=== PATIENT | male | born 1980 | race African-American/Black ===

== ENCOUNTER 2020-10-01 17:52 | Inpatient (IN) ==
[2020-10-01 23:55] LABS: Basophils % 0.3 % (0.0-0.8); Eosinophils # 0.1 10*3/uL (0.0-0.87); Eosinophils % 1.9 % (0.00-10.9); Hematocrit 30.3 VOL% (42.0-52.0); Hemoglobin 9.4 GM/DL (14.0-18.0); Immature Granulocytes % 0.4 %; Immature Granulocytes Absolute 0.03 #; Lymphocytes # 1.6 10*3/uL (1.4-4.0); Lymphocytes % 22.4 % (21.2-54.2); Mean Corpuscular Volume 77.3 FL (87-102); Mean Platelet Volume 9.9 FL (9.6-12.0); Monocytes % 14.6 % (1.7-12.7); Neutrophils % 60.4 % (38.7-73.9); Platelet Count 281 T/CUMM (130-400); Red Blood Count 3.92 MC/CUMM (3.8-5.5); Red Cell Distribution Width 15.9 % (9.3-17.3); White Blood Count 7.2 T/CUMM (4-12)
[2020-10-02] MEDS ORDERED: ONDANSETRON 4 MG/2 ML VIAL ONE (00:01)
[2020-10-02] MEDS ORDERED: ONDANSETRON 4 MG/2 ML VIAL IV STA (00:04)
[2020-10-02 00:25] LABS: Alanine Aminotransferase 17 U/L (16-61); Albumin 2.4 G/DL (3.4-5.0); Alkaline Phosphatase 112 U/L (45-117); Aspartate Amino Transferase 13 U/L (0-37); Bilirubin,Total < 0.39 MG/DL (0.20-1.00); Blood Urea Nitrogen 19 MG/DL (7-18); Calcium 8.8 MG/DL (8.5-10.1); Carbon Dioxide 32 MMOL/L (21-32); Estimated Glom Filtration Rate 63 ML/MIN; Glucose 141 MG/DL (74-106); Osmolality,Calculated 282.4 MOS/KG (273-304); Potassium 3.9 MMOL/L (3.5-5.1); Sodium 140 MMOL/L (136-145); Total Protein 7.5 G/DL (6.4-8.2)
[2020-10-02] MEDS ORDERED: PIPERACILLIN/TAZOBACTAM 3,375 MG in SODIUM CHLORIDE 0.9% 100 ML IV STA (00:37)
[2020-10-02] MEDS ORDERED: SODIUM CHLORIDE 0.9% 1,000 ML IV STA (00:37)
[2020-10-02 01:15] LABS: Bacteria,Urine Occasional /HPF (Few); Bilirubin,Urine Negative (Negative); Blood, Urine Moderate mg/dL (Negative); Glucose,Urine (UA) Negative (Negative); Hyaline Casts,Urine 7 /LPF (0-3); Ketones,Urine Negative (Negative); Mucus,Urine Occasional /LPF (Occasional); Nitrite,Urine Negative (Negative); Protein,Urine 100 MG/DL; RBC,Urine 13 /HPF (0-4); Urine Appearance CLEAR (Clear); Urine Color Yellow (Yellow); Urine Specific Gravity 1.014 (1.001-1.035); Urine Urobilinogen < 2.0 EU/DL (0.2-1.0)
[2020-10-02] MEDS ORDERED: GLUCAGON 1 MG VIAL IM PRN ×2 (01:57→15:41)
[2020-10-02] MEDS ORDERED: DEXTROSE 50% 25 GM/50 ML VIAL IV PRN ×2 (01:57→15:41)
[2020-10-02] MEDS ORDERED: NICOTINE 21 MG/24 HR PATCH TRANSDERM PRN (01:57)
[2020-10-02] MEDS ORDERED: hydrALAZINE 20 MG/1 ML VIAL IV PRN (01:57)
[2020-10-02] MEDS ORDERED: ACETAMINOPHEN 325 MG TABLET PO PRN (01:57)
[2020-10-02] MEDS ORDERED: VANCOMYCIN 1,000 MG VIAL ONE (03:55)
[2020-10-02] MEDS ORDERED: VANCOMYCIN INJ 1,000 MG in SODIUM CHLORIDE 0.9% 250 ML IV STA (03:56)
[2020-10-02] MEDS: ONDANSETRON 4 MG/2 ML VIAL IV PRN ×4 (04:43→20:54)
[2020-10-02] MEDS ORDERED: VANCOMYCIN INJ 1,000 MG in SODIUM CHLORIDE 0.9% 250 ML IV ONE (05:00)
[2020-10-02] MEDS: INSULIN REGULAR 100 UNIT/ML SUBCUT SCH ×3 (06:08→17:20)
[2020-10-02 08:44] LABS: Basophils % 0.4 % (0.0-0.8); Eosinophils # 0.1 10*3/uL (0.0-0.87); Eosinophils % 0.8 % (0.00-10.9); Hematocrit 30.2 VOL% (42.0-52.0); Hemoglobin 9.3 GM/DL (14.0-18.0); Immature Granulocytes % 0.4 %; Immature Granulocytes Absolute 0.03 #; Lymphocytes # 1.2 10*3/uL (1.4-4.0); Mean Corpuscular HGB Conc 30.8 GM/DL (32-36); Mean Corpuscular Volume 77.4 FL (87-102); Mean Platelet Volume 9.5 FL (9.6-12.0); Monocytes % 9.8 % (1.7-12.7); Neutrophils % 71.6 % (38.7-73.9); Platelet Count 262 T/CUMM (130-400); Red Cell Distribution Width 15.8 % (9.3-17.3); White Blood Count 7.3 T/CUMM (4-12)
[2020-10-02] MEDS ORDERED: SODIUM CHLORIDE 0.45% 1,000 ML IV SCH (09:00)
[2020-10-02 09:06] LABS: Calcium 8.5 MG/DL (8.5-10.1); Osmolality,Calculated 287.1 MOS/KG (273-304); Potassium 3.9 MMOL/L (3.5-5.1)
[2020-10-02] MEDS: carvediloL 6.25 MG TABLET PO SCH ×2 (10:12→22:40)
[2020-10-02] MEDS: PIPERACILLIN/TAZOBACTAM 3,375 MG in SODIUM CHLORIDE 0.9% 100 ML IV SCH ×2 (10:14→15:34)
[2020-10-02] MEDS: MORPHINE 2 MG/1 ML SYRINGE IV PRN (23:30)
[2020-10-03] MEDS: PIPERACILLIN/TAZOBACTAM 3,375 MG in SODIUM CHLORIDE 0.9% 100 ML IV SCH ×3 (00:46→16:34)
[2020-10-03] MEDS: INSULIN REGULAR 100 UNIT/ML SUBCUT SCH ×4 (00:53→17:42)
[2020-10-03] MEDS: MORPHINE 2 MG/1 ML SYRINGE IV PRN (03:50)
[2020-10-03] MEDS: ONDANSETRON 4 MG/2 ML VIAL IV PRN (05:02)
[2020-10-03] MEDS: VANCOMYCIN INJ 1,750 MG in SODIUM CHLORIDE 0.9% 500 ML IV SCH (05:05)
[2020-10-03 05:36] LABS: Basophils % 0.4 % (0.0-0.8); Eosinophils # 0.2 10*3/uL (0.0-0.87); Eosinophils % 2.3 % (0.00-10.9); Hematocrit 28.4 VOL% (42.0-52.0); Immature Granulocytes % 0.5 %; Immature Granulocytes Absolute 0.04 #; Lymphocytes # 1.4 10*3/uL (1.4-4.0); Lymphocytes % 19.1 % (21.2-54.2); Mean Corpuscular HGB Conc 31.7 GM/DL (32-36); Mean Corpuscular Volume 76.5 FL (87-102); Mean Platelet Volume 9.8 FL (9.6-12.0); Monocytes % 10.7 % (1.7-12.7); Platelet Count 256 T/CUMM (130-400); Red Blood Count 3.71 MC/CUMM (3.8-5.5); Red Cell Distribution Width 15.6 % (9.3-17.3); White Blood Count 7.4 T/CUMM (4-12)
[2020-10-03 05:56] LABS: Calcium 8.4 MG/DL (8.5-10.1); Potassium 3.8 MMOL/L (3.5-5.1)
[2020-10-03 05:58] LABS: Risk Ratio 6.03; VLDL Cholesterol 34.2 MG/DL
[2020-10-03] MEDS: carvediloL 6.25 MG TABLET PO SCH ×2 (09:56→21:23)
[2020-10-03] MEDS ORDERED: LACTULOSE 20 GM/30 ML UDCUP PO PRN (11:16)
[2020-10-03] MEDS: INSULIN ASPART PROTAMINE/ASPART 70/30 100 UNIT/ML SUBCUT SCH (16:34)
[2020-10-03] MEDS: ATORVASTATIN 20 MG TABLET PO SCH (21:23)
[2020-10-03] MEDS: INSULIN GLARGINE 100 UNIT/ML SUBCUT SCH (21:25)
[2020-10-04] MEDS: INSULIN REGULAR 100 UNIT/ML SUBCUT SCH ×4 (00:02→17:07)
[2020-10-04] MEDS: PIPERACILLIN/TAZOBACTAM 3,375 MG in SODIUM CHLORIDE 0.9% 100 ML IV SCH ×2 (00:02→09:43)
[2020-10-04] MEDS: VANCOMYCIN INJ 1,750 MG in SODIUM CHLORIDE 0.9% 500 ML IV SCH (05:13)
[2020-10-04 07:19] LABS: Basophils % 0.4 % (0.0-0.8); Eosinophils # 0.3 10*3/uL (0.0-0.87); Eosinophils % 3.6 % (0.00-10.9); Hematocrit 27.7 VOL% (42.0-52.0); Hemoglobin 8.5 GM/DL (14.0-18.0); Immature Granulocytes % 0.4 %; Immature Granulocytes Absolute 0.03 #; Lymphocytes # 1.6 10*3/uL (1.4-4.0); Lymphocytes % 21.2 % (21.2-54.2); Mean Corpuscular HGB Conc 30.7 GM/DL (32-36); Mean Corpuscular Volume 77.8 FL (87-102); Mean Platelet Volume 9.9 FL (9.6-12.0); Monocytes % 8.3 % (1.7-12.7); Neutrophils % 66.1 % (38.7-73.9); Platelet Count 264 T/CUMM (130-400); Red Blood Count 3.56 MC/CUMM (3.8-5.5); Red Cell Distribution Width 15.5 % (9.3-17.3); White Blood Count 7.6 T/CUMM (4-12)
[2020-10-04] MEDS: INSULIN ASPART PROTAMINE/ASPART 70/30 100 UNIT/ML SUBCUT SCH ×2 (07:38→16:36)
[2020-10-04 07:52] LABS: Calcium 8.5 MG/DL (8.5-10.1); Osmolality,Calculated 284.1 MOS/KG (273-304); Potassium 3.5 MMOL/L (3.5-5.1)
[2020-10-04] MEDS: ASPIRIN CHEW 81 MG TABLET PO SCH (09:00)
[2020-10-04] MEDS: carvediloL 6.25 MG TABLET PO SCH ×2 (09:01→22:08)
[2020-10-04] MEDS: cefTRIAXone 1,000 MG in SODIUM CHLORIDE 0.9% 100 ML IV SCH (13:46)
[2020-10-04] MEDS: ATORVASTATIN 20 MG TABLET PO SCH (22:08)
[2020-10-05] MEDS: INSULIN REGULAR 100 UNIT/ML SUBCUT SCH ×4 (03:38→17:05)
[2020-10-05] MEDS: INSULIN GLARGINE 100 UNIT/ML SUBCUT SCH ×2 (03:38→21:56)
[2020-10-05] MEDS: carvediloL 6.25 MG TABLET PO SCH ×3 (06:36→21:56)
[2020-10-05 07:06] LABS: Basophils % 0.4 % (0.0-0.8); Eosinophils # 0.3 10*3/uL (0.0-0.87); Hematocrit 30.2 VOL% (42.0-52.0); Hemoglobin 9.5 GM/DL (14.0-18.0); Immature Granulocytes % 0.4 %; Immature Granulocytes Absolute 0.04 #; Lymphocytes # 1.8 10*3/uL (1.4-4.0); Lymphocytes % 19.2 % (21.2-54.2); Mean Corpuscular HGB Conc 31.5 GM/DL (32-36); Mean Platelet Volume 9.6 FL (9.6-12.0); Monocytes % 7.7 % (1.7-12.7); Neutrophils % 69.3 % (38.7-73.9); Platelet Count 283 T/CUMM (130-400); Red Blood Count 3.92 MC/CUMM (3.8-5.5); Red Cell Distribution Width 15.3 % (9.3-17.3); White Blood Count 9.5 T/CUMM (4-12)
[2020-10-05] MEDS ORDERED: ONDANSETRON 4 MG/2 ML VIAL ONE (07:12)
[2020-10-05] MEDS ORDERED: DEXAMETHASONE 4 MG/1 ML VIAL ONE (07:12)
[2020-10-05] MEDS ORDERED: MIDAZOLAM 2 MG/2 ML VIAL ONE ×2 (07:12→08:24)
[2020-10-05] MEDS ORDERED: LIDOCAINE 2% 5 ML VIAL ONE ×2 (07:12→08:24)
[2020-10-05] MEDS ORDERED: SEVOFLURANE 1 UNIT/15 MINUTE INH ONE (07:12)
[2020-10-05] MEDS ORDERED: propofoL 200 MG/20 ML VIAL IV ONE ×2 (07:12→08:24)
[2020-10-05] MEDS ORDERED: fentaNYL 100 MCG/2 ML VIAL ONE ×2 (07:13→08:24)
[2020-10-05 07:29] LABS: Calcium 8.4 MG/DL (8.5-10.1); Osmolality,Calculated 278.5 MOS/KG (273-304); Potassium 3.3 MMOL/L (3.5-5.1)
[2020-10-05] MEDS ORDERED: BUPIVACAINE MPF 0.25% 30 ML VIAL ONE (07:58)
[2020-10-05] MEDS ORDERED: LIDOCAINE 1% 20 ML VIAL ONE (07:58)
[2020-10-05] MEDS ORDERED: LACTATED RINGERS 1,000 ML IV SCH (08:00)
[2020-10-05] MEDS: INSULIN ASPART PROTAMINE/ASPART 70/30 100 UNIT/ML SUBCUT SCH (09:57)
[2020-10-05] MEDS: ASPIRIN CHEW 81 MG TABLET PO SCH (10:07)
[2020-10-05] MEDS ORDERED: MAGNESIUM SULF RIDER 4 GM/100 ML PREMIX IV PRN (10:25)
[2020-10-05] MEDS ORDERED: MAGNESIUM SULF RIDER 2 GM/50 ML PREMIX IV PRN (10:25)
[2020-10-05] MEDS: amLODIPine 5 MG TABLET PO SCH (11:53)
[2020-10-05] MEDS: cefTRIAXone 1,000 MG in SODIUM CHLORIDE 0.9% 100 ML IV SCH (13:11)
[2020-10-05] MEDS: ATORVASTATIN 20 MG TABLET PO SCH (21:56)
[2020-10-06] MEDS: INSULIN REGULAR 100 UNIT/ML SUBCUT SCH ×3 (02:13→11:53)
[2020-10-06 06:06] LABS: Basophils % 0.2 % (0.0-0.8); Eosinophils # 0.3 10*3/uL (0.0-0.87); Eosinophils % 3.8 % (0.00-10.9); Hematocrit 27.2 VOL% (42.0-52.0); Hemoglobin 8.7 GM/DL (14.0-18.0); Immature Granulocytes % 0.4 %; Immature Granulocytes Absolute 0.03 #; Lymphocytes # 2.1 10*3/uL (1.4-4.0); Lymphocytes % 25.9 % (21.2-54.2); Mean Corpuscular Volume 75.6 FL (87-102); Mean Platelet Volume 9.6 FL (9.6-12.0); Monocytes % 9.2 % (1.7-12.7); Neutrophils % 60.5 % (38.7-73.9); Platelet Count 257 T/CUMM (130-400); Red Cell Distribution Width 15.4 % (9.3-17.3); White Blood Count 8.1 T/CUMM (4-12)
[2020-10-06 06:41] LABS: Calcium 8.3 MG/DL (8.5-10.1); Osmolality,Calculated 285.8 MOS/KG (273-304); Potassium 3.7 MMOL/L (3.5-5.1)
[2020-10-06] MEDS: ASPIRIN CHEW 81 MG TABLET PO SCH (08:41)
[2020-10-06] MEDS: carvediloL 6.25 MG TABLET PO SCH (08:41)
[2020-10-06] MEDS: amLODIPine 5 MG TABLET PO SCH (08:41)
[2020-10-06] MEDS: cefTRIAXone 1,000 MG in SODIUM CHLORIDE 0.9% 100 ML IV SCH (11:53)
== END 2020-10-06 15:41 | disposition home health service (06) | DRG 305 ==
LOC: N.ED 17:52 → N.EDINP 10-02 01:57 → N.3E 10-02 04:03
PROVIDERS: ADMIT Internal Medicine; ATTEND Internal Medicine